=== PATIENT | male | born 1950 | race Caucasian/White ===

== ENCOUNTER 2024-03-15 10:11 | Inpatient (IN) | payer OTHER ==
[~2024-03-15] VITALS: Ht 185.4 cm; Wt 96.2 kg
[2024-03-15] MEDS ORDERED: TDAP [DIPH/PERTUSSIS/TET] 0.5 ML VIAL IM ONE (10:45)
[2024-03-15] MEDS: TDAP [DIPH/PERTUSSIS/TET] 0.5 ML VIAL IM ONE (10:51)
[2024-03-15 11:24] LABS: BASOPHILS # (AUTO) 0.1 K/uL (0.0-0.2); BASOPHILS % (AUTO) 1.6 % (0.0-2.0); EOSINOPHILS # (AUTO) 0.2 K/uL (0.0-0.7); EOSINOPHILS % (AUTO) 3.1 % (0.0-6.0); HEMATOCRIT 41 % (39-51); HEMOGLOBIN 13.8 g/dL (13.5-17.5); LYMPHOCYTES # (AUTO) 2.3 K/uL (0.8-4.8); LYMPHOCYTES % (AUTO) 30.7 % (20.0-44.0); MEAN CORPUSCULAR HEMOGLOBIN 30 PG (26.0-33.0); MEAN CORPUSCULAR HGB CONC 34 g/dl (31.0-36.0); MEAN CORPUSCULAR VOLUME 88 fL (80-96); MONOCYTES % (AUTO) 13.6 % (2.0-12.0); NEUTROPHILS # (AUTO) 3.8 K/uL (1.8-8.9); PLATELET COUNT (AUTO) 250 K/uL (150-450); RED BLOOD CELL COUNT(AUTO) 4.68 MIL/uL (4.5-6.0); WHITE BLOOD COUNT (AUTO) 7.4 K/uL (4.3-11.0)
[2024-03-15 11:50] LABS: ALANINE AMINOTRANSFERASE 37 U/L (12-78); ALBUMIN 3.5 g/dL (3.4-5.0); ALKALINE PHOSPHATASE 67 U/L (46-116); ASPARTATE AMINOTRANSFERASE 23 U/L (15-37); BILIRUBIN,DIRECT 0.1 mg/dL (0.0-0.2); BILIRUBIN,TOTAL 0.5 mg/dL (0.2-1.0); CALCIUM, SERUM 8.9 mg/dL (8.5-10.1); CARBON DIOXIDE 28 mmol/L (21-32); CHLORIDE 103 mmol/L (98-107); CREATININE 0.8 mg/dL (0.6-1.3); GLUCOSE 103 mg/dL (74-106); SODIUM SERUM 138 mmol/L (136-145); TOTAL PROTEIN, SERUM 7.1 g/dL (6.4-8.2); UREA NITROGEN, BLOOD 24 mg/dL (7-18)
[2024-03-15 11:52] LABS: APPEARANCE,URINE CLEAR (CLEAR); BILIRUBIN,URINE NEGATIVE (NEGATIVE); BLOOD, URINE NEGATIVE Ery/uL (NEGATIVE); COLOR,URINE YELLOW (YELLOW); KETONES,URINE NEGATIVE (NEGATIVE); LEUKOCYTE ESTERASE ,URINE NEGATIVE (NEGATIVE); NITRITE, URINE NEGATIVE (NEGATIVE); PH,URINE 5.5 (5.0-8.0); PROTEIN,URINE NEGATIVE (NEGATIVE); UGLUCOSE NEGATIVE (NEGATIVE); UROBILINOGEN,URINE 0.2 EU/dL (0.2)
[2024-03-15 11:54] LABS: ACETAMINOPHEN <10 ug/ml (10-30); ALCOHOL, BLOOD < 10 mg/dL (0-10); SALICYLATE 1.2 mg/dL (2.8-20.0)
[2024-03-15 12:12] LABS: AMPHETAMINE, URINE NEGATIVE (NEGATIVE); BARBITURATE, URINE NEGATIVE (NEGATIVE); BENZODIAZEPINE, URINE NEGATIVE (NEGATIVE); CANNABINOID, URINE NEGATIVE (NEGATIVE); COCCAINE, URINE NEGATIVE (NEGATIVE); OPIATE, URINE NEGATIVE (NEGATIVE); PHENCYCLIDINE SCREEN,URINE NEGATIVE (NEGATIVE)
[2024-03-15] MEDS ORDERED: INSULIN REGULAR, HUMAN 100 UNIT/ML 10 ML VIAL ONE (15:47)
[2024-03-15] MEDS: IV NS 0.9% 1,000 ML BAG IV ONE (15:56)
[2024-03-15] MEDS: INSULIN REGULAR, HUMAN 100 UNIT/ML 10 ML VIAL SQ ONE (15:59)
[2024-03-16] MEDS: IV NS 0.9% 1,000 ML BAG IV ONE (08:08)
[2024-03-16] MEDS ORDERED: BUDE0.253 IH (14:43)
[2024-03-16] MEDS ORDERED: METH-647 PO (14:43)
[2024-03-16] MEDS ORDERED: SERT50TA PO (14:43)
[2024-03-16] MEDS ORDERED: AMIN30LI2 PO (14:43)
[2024-03-16] MEDS ORDERED: APIX5TAB PO (14:43)
[2024-03-16] MEDS ORDERED: ACET-868 PO (14:43)
[2024-03-16] MEDS ORDERED: LORA-259 PO (14:43)
[2024-03-16] MEDS ORDERED: CLON0.1T PO (14:43)
[2024-03-16] MEDS ORDERED: TEMA22.53 PO (14:43)
[2024-03-16] MEDS ORDERED: ARIP5TAB10 PO (14:43)
[2024-03-16] MEDS ORDERED: GABA300C PO (14:43)
[2024-03-16] MEDS: BLOOD SUGAR DIAGNOSTIC 1 EACH STRIP IN ONE (15:30)
[2024-03-16] MEDS: LORAZEPAM 0.5 MG TABLET PO ONE ×2 (15:30→22:30)
[2024-03-16] MEDS ORDERED: MAGNESIUM HYDROXIDE 30 ML UDC PO PRN (15:30)
[2024-03-16] MEDS ORDERED: ACETAMINOPHEN 325 MG TABLET PO PRN (15:30)
[2024-03-16] MEDS ORDERED: MAG HYDROX/AL HYDROX/SIMETH 30 ML UDC PO PRN (15:30)
[2024-03-16 16:00] VITALS: BP 169/95; TEMP 97.9; O2SAT 95
[2024-03-16] MEDS ORDERED: DEXTROSE 50%-WATER 50 ML DISP.SYRIN IV PRN (16:00)
[2024-03-16] MEDS ORDERED: CLONIDINE HCL 0.1 MG TABLET PO PRN (17:00)
[2024-03-16] MEDS: GABAPENTIN 300 MG CAPSULE PO SCH (17:27)
[2024-03-16] MEDS: METHOCARBAMOL (500MG) 500 MG TABLET PO SCH (17:27)
[2024-03-16] MEDS: APIXABAN 5 MG TABLET PO SCH (17:28)
[2024-03-16] MEDS: BLOOD SUGAR DIAGNOSTIC 1 EACH STRIP IN SCH (17:28)
[2024-03-16] MEDS ORDERED: SERTRALINE HCL 50 MG TABLET PO SCH (18:00)
[2024-03-16 20:23] VITALS: BP_SYST 116; BP_SYST 150; BP_DIAS 73; BP_DIAS 98; TEMP 97.9; TEMP 98.3; O2SAT 95; O2SAT 97
[2024-03-17 07:50] LABS: ALBUMIN 3.2 g/dL (3.4-5.0); BILIRUBIN,TOTAL 0.6 mg/dL (0.2-1.0); CALCIUM, SERUM 8.6 mg/dL (8.5-10.1); CREATININE 0.8 mg/dL (0.6-1.3)
[2024-03-17 08:00] VITALS: BP 170/100; TEMP 98.6; O2SAT 97
[2024-03-17 08:01] LABS: CHOLESTEROL 175 mg/dL (<200); HDL CHOLESTEROL 58 mg/dL (40-60); LDL 97 mg/dL (0-99); TRIGLYCERIDES 49 mg/dL (30-150)
[2024-03-17] MEDS: BUDESONIDE RESPULE INH 0.5 MG/2 ML AMPUL.NEB IH SCH (09:00)
[2024-03-17] MEDS: SERTRALINE HCL 50 MG TABLET PO SCH (13:43)
[2024-03-17] MEDS: LORAZEPAM 0.5 MG TABLET PO PRN (13:44)
[2024-03-17] MEDS: PROSOURCE / PROSTAT (PYXIS) 30 ML UDC PO SCH (13:45)
[2024-03-17 15:59] LABS: CREATININE 0.8 mg/dL (0.6-1.3)
[2024-03-17 16:00] VITALS: BP 118/68; TEMP 98.7; O2SAT 98
[2024-03-17 20:12] VITALS: BP 152/75; TEMP 98.4; O2SAT 95
[2024-03-17] MEDS: MIRTAZAPINE 15 MG TABLET PO SCH (22:08)
[2024-03-18 08:00] VITALS: BP 142/87; TEMP 98.6; O2SAT 99
[2024-03-18 16:00] VITALS: BP 148/100; TEMP 98.7; O2SAT 96
[2024-03-18 20:01] VITALS: BP 151/89; TEMP 98.8; O2SAT 95
[2024-03-19 08:00] VITALS: BP 143/97; TEMP 98.7; O2SAT 96
[2024-03-19 10:56] VITALS: O2SAT 97
[2024-03-19 11:11] VITALS: O2SAT 99
[2024-03-19 11:25] LABS: THYROID STIMULATING HORMONE 3.6 uIU/mL (0.358-3.74)
[2024-03-19 16:00] VITALS: BP 118/73; TEMP 97.9; O2SAT 97
[2024-03-19 20:06] VITALS: BP 145/91; TEMP 98.6; O2SAT 97
[2024-03-19] MEDS: INSULIN REGULAR, HUMAN 100 UNIT/ML 3 ML VIAL SQ PRN (22:27)
[2024-03-20 08:00] VITALS: BP 150/84; TEMP 98.6; O2SAT 98
[2024-03-20 16:00] VITALS: BP 111/78; TEMP 98.9; O2SAT 94
[2024-03-20 20:00] VITALS: BP 134/79; TEMP 98.7; O2SAT 95
[2024-03-20] MEDS: ACETAMINOPHEN 325 MG TABLET PO PRN (21:02)
[2024-03-20] MEDS: GUAIFENESIN/D-METHORPHAN HB 5 ML UDC PO PRN (21:12)
[2024-03-21 06:09] LABS: FOLIC ACID 14.1 ng/mL (>3.0)
[2024-03-21 08:00] VITALS: BP 138/78; TEMP 97.9; O2SAT 98
[2024-03-21 08:08] VITALS: O2SAT 96
[2024-03-21 08:17] VITALS: O2SAT 98
== END 2024-03-21 13:55 | DRG 885 ==
LOC: ER 11:13 → GPS 03-16 14:16
PROVIDERS: ADMIT Psychiatry & Neurology Psychosomatic Medicine
DX: F33.2 Major depressive disorder, recurrent severe without psychotic features (principal); R45.851 Suicidal ideations; Z59.00 Homelessness unspecified; F29 Unspecified psychosis not due to a substance or known physiological condition; G89.4 Chronic pain syndrome; E66.9 Obesity, unspecified; I10 Essential (primary) hypertension; J44.9 Chronic obstructive pulmonary disease, unspecified; F43.10 Post-traumatic stress disorder, unspecified; F41.0 Panic disorder [episodic paroxysmal anxiety]; Z68.28 Body mass index [BMI] 28.0-28.9, adult; Z86.718 Personal history of other venous thrombosis and embolism; G62.9 Polyneuropathy, unspecified; Z88.8 Allergy status to other drugs, medicaments and biological substances; M47.816 Spondylosis without myelopathy or radiculopathy, lumbar region; Z73.6 Limitation of activities due to disability; S51.812A Laceration without foreign body of left forearm, initial encounter; X78.9XXA Intentional self-harm by unspecified sharp object, initial encounter; Y92.129 Unspecified place in nursing home as the place of occurrence of the external cause; M54.30 Sciatica, unspecified side; Z82.3 Family history of stroke
CPT/HCPCS: 36415; 70450-TC; 80048-TC; 80053-TC; 80061-TC; 80076-TC; 82565-TC; 82607-TC; 82962-TC; 83921; 84425; 84443-TC; 84484-TC; 85025-TC; 87081-TC; 90715; 94799-TC; A4223; G0480; J1815; J7030; J7040